=== PATIENT | female | born 1990 | race Caucasian/White ===

== ENCOUNTER 2018-01-29 19:39 | Emergency (ER) | payer OTHER ==
[~2018-01-29] VITALS: Ht 157.5 cm; Wt 74.2 kg
[2018-01-29 20:12] VITALS: Ht 157.5 cm; Wt 74.2 kg
[2018-01-29 23:27] VITALS: BP 109/83
== END 2018-01-29 22:29 | disposition home or self-care (01) ==
LOC: ED 19:39
DX: S46.912A Strain of unspecified muscle, fascia and tendon at shoulder and upper arm level, left arm, initial encounter (principal); S43.51XA Sprain of right acromioclavicular joint, initial encounter; M25.522 Pain in left elbow; V49.9XXA Car occupant (driver) (passenger) injured in unspecified traffic accident, initial encounter; Y93.I9 Activity, other involving external motion; Y92.488 Other paved roadways as the place of occurrence of the external cause; Y99.8 Other external cause status
CPT/HCPCS: J1885; Q0092